=== PATIENT | male | born 1980 | race American Indian/Alaskan Native ===

== ENCOUNTER 2019-03-04 11:07 | Outpatient (CLI) | payer OTHER ==
--- NOTE | 2019-03-04 14:07 | XRay Report ---
BILATERAL HIPS 2 VIEWS WITH PELVIS HISTORY: Bilateral hip pain FINDINGS: No comparison. Bone mineralization is normal. Sclerotic changes are identified in both femo ral heads consistent with osteonecrosis. There is no evidence for femoral head collapse or fragmentat ion. The remaining bony structures are intact. No significant degenerative changes. Signer Name: Owen Tijerina Jr, MD Signed: 03/04/2019 2:02 PM Workstation Name: [id number]
== END 2019-03-04 11:08 | disposition home or self-care (01) ==
LOC: XRAY 11:07
PROVIDERS: ATTEND Orthopaedic Surgery
DX: M25.551 Pain in right hip (principal); M25.552 Pain in left hip; Z88.1 Allergy status to other antibiotic agents
CPT/HCPCS: 73521

== ENCOUNTER 2019-03-12 12:40 | Day surgery (SDC) | payer OTHER ==
[2019-03-12 14:13] VITALS: BP 123/82
[2019-03-12] MEDS ORDERED: LIDOCAINE (1%) 10 MG/1 ML VIAL 20 ML MDV INFILTRATI ONE (14:28)
[2019-03-12] MEDS ORDERED: BUPIVACAINE/PF (0.5%) 5 MG/1 ML 10 ML VIAL INFILTRATI ONE (14:30)
--- NOTE | 2019-03-12 15:02 | XRay Report ---
C-arm of the left hip INDICATION: Hip pain FINDINGS: Single view submitted shows needle projected over the medial aspect of the left hip joint f or pain control injection. Total fluoroscopic time was 0.2 minutes. Signer Name: Fred Rhodes MD Signed: 03/12/2019 2:58 PM Workstation Name: [id number]
[2019-03-12] MEDS ORDERED: BUPIVACAINE/PF (0.5%) 5 MG/1 ML 30 ML VIAL INFILTRATI ONE (15:17)
[2019-03-12] MEDS ORDERED: LIDOCAINE (1%) 10 MG/1 ML VIAL 20 ML MDV ONE (15:17)
--- NOTE | 2019-03-16 08:43 | Procedure Note ---
Date of procedure: 03/12/19 Pre-op diagnosis: avascular necrosis left femoral head Post-op diagnosis: same Procedure: Left femoral and obturator nerve block hip joint Procedure The patient was brought to the OR placed on the or table in the supine position next C-arm fluoroscopy was used to establish landmarks around the hip joint following this the left hip and groin area was prepped and draped in a sterile manner a timeout procedure was done to identify the patient and correct o perative site. Using the 21-gauge spinal needle a 0 fluoroscopy the anterior lateral portion of the acetabular rim was identified the spinal needle was placed up against the anterior border and 2% Marcaine was injected in the area of the femoral nerve articular branches. Following this a second spinal needle was then placed along the area corresponding to the Ischium on C-arm this area was anesthetized with lidocaine followed by insertion of the 21-gauge spinal needle and it was advanced just lateral to the teardrop on the inferior rim of the acetabulum ball was palpated as well The 2% Marcaine was injected into this location to anesthetize the obturator nerve the spinal needle was then removed pressure was applied over the puncture wound was followed by placement of 2 Band-Aids. The patient tolerated the procedure he was then taken back to the preop holding area where he was discharged to home Anesthesia: local Surgeon: VEGA CUTLER Estimated blood loss: minimal Pathology: none Condition: stable Disposition: observation
== END 2019-03-12 14:45 | disposition home or self-care (01) ==
LOC: OR 12:40
PROVIDERS: ATTEND Orthopaedic Surgery
DX: M87.052 Idiopathic aseptic necrosis of left femur (principal); G43.909 Migraine, unspecified, not intractable, without status migrainosus; E78.00 Pure hypercholesterolemia, unspecified; I10 Essential (primary) hypertension; G47.30 Sleep apnea, unspecified; K21.9 Gastro-esophageal reflux disease without esophagitis; E03.9 Hypothyroidism, unspecified; F32.9 Major depressive disorder, single episode, unspecified; F41.9 Anxiety disorder, unspecified; Z72.89 Other problems related to lifestyle; Z79.899 Other long term (current) drug therapy; Z88.2 Allergy status to sulfonamides; Z98.890 Other specified postprocedural states; Z86.2 Personal history of diseases of the blood and blood-forming organs and certain disorders involving the immune mechanism
CPT/HCPCS: 64447; 64450

== ENCOUNTER 2019-05-21 07:56 | Day surgery (SDC) | payer OTHER ==
--- NOTE | 2019-05-21 08:51 | Anesthesia Day of Surgery ---
Anesthesia Day of Surgery - Day of Surgery Patient Examined: Yes Patient H&P Reviewed: Yes Patient is NPO: Yes
--- NOTE | 2019-05-21 08:53 | Anesthesia Consultation ---
Anesthesia Consult and Med Hx Date of service: 05/21/19 - Airway Anesthetic Teeth Evaluation: Good ROM Head & Neck: Adequate Mental/Hyoid Distance: Adequate Mallampati Class: Class II Intubation Access Assessment: Probably Good - Pre-Operative Health Status ASA Pre-Surgery Classification: ASA3 Proposed Anesthetic Plan: General (MAC; GA if needed), MAC - Pulmonary Hx Smoking: No Hx Sleep Apnea: Yes (DX SLEEP APNEA WITH CPAP USE.) - Cardiovascular System Hx Hypertension: Yes (2007) - Central Nervous System Hx Back Pain: Yes ( QUIANA LEGS , WORSE IN LEFT- CHRONIC) Hx Psychiatric Problems: Yes (Anxiety/Depression/PTSD) - Gastrointestinal Hx Gastroesophageal Reflux Disease: Yes (Dietary. Hx colectomy and ileostomy; reversed) - Endocrine Hx Cirrhosis: Yes (DUE TO ALCOHOL ABUSE , DRY X 1 YR.) Hx Hypothyroidism: Yes (ON DAILY MEDS) - Hematic Hx Sickle Cell Disease: No (HIV+) - Other Systems Hx Alcohol Use: Yes (HX ABUSE- DRY X 1 YR) Hx Substance Use: Yes (RARE MARIJUANA USE) Hx Cancer: No
[2019-05-21] MEDS ORDERED: SODIUM CHLORIDE 0.9% 1000 ML 1,000 ML IV SCH (09:00)
[2019-05-21] MEDS ORDERED: fentaNYL 100 MCG/2 ML INJ IV PRN (09:00)
[2019-05-21] MEDS ORDERED: ONDANSETRON 4 MG/2 ML INJ IV PRN (09:00)
[2019-05-21] MEDS ORDERED: PROPOFOL 200 MG/20 ML VIAL IV ONE ×2 (11:05→12:15)
[2019-05-21] MEDS ORDERED: LIDOCAINE MPF (2%) 20 MG/1 ML VIAL 5 ML ONE (11:05)
[2019-05-21] MEDS ORDERED: fentaNYL 100 MCG/2 ML INJ ONE (11:05)
[2019-05-21] MEDS ORDERED: MIDAZOLAM 2 MG/2 ML INJ ONE (11:05)
[2019-05-21] MEDS ORDERED: BUPIVACAINE/PF (0.5%) 5 MG/1 ML 30 ML VIAL INFILTRATI ONE ×2 (11:10→12:15)
[2019-05-21] MEDS ORDERED: LIDOCAINE (1%) 10 MG/1 ML VIAL 20 ML MDV ONE (11:10)
[2019-05-21] MEDS ORDERED: KETAMINE/STERILE WATER 50 MG/ML SYRINGE ONE (11:40)
[2019-05-21] MEDS ORDERED: PHENYLEPHRINE/NS 1,000 MCG/10 ML SYRINGE (OR USE) IV ONE (11:58)
[2019-05-21] MEDS ORDERED: methylPREDNISolone ACETATE 40 MG/1 ML INJ IM ONE (12:02)
[2019-05-21] MEDS ORDERED: LIDOCAINE (1%) 10 MG/1 ML VIAL 20 ML MDV INFILTRATI ONE (12:16)
[2019-05-21] MEDS ORDERED: ONDANSETRON 4 MG/2 ML INJ ONE (12:22)
--- NOTE | 2019-05-21 12:42 | Procedure Note ---
Date of procedure: 05/21/19 Pre-op diagnosis: left hip pain Post-op diagnosis: same Procedure: Radiofrequency ablation right femoral and obturator nerves Procedure The patient was brought to the OR placed in the OR table in supine position following induction with MAC anesthesia the patient's leftt hip was then prepped and draped in the usual sterile manner. A timeout procedure was done to identify the patient and the correct operative site. Using C-arm fluoroscopy the area overlying the acetabular rim superiorly was localized, care was taken to avoid the neurovascular structures, next the thermoprobe was placed into the correct position along the acetabular superior rim, next a second probe was then inserted just medial to the tear drop sign near the obturator canal, again care was taken to avoid the neurovascular structures once These probes were in the corret position the nerves was checked to make sure that we were not near the motor nerves following this the radiofrequency was then began and continued for 2-1/2 minutes in each location After ablating the nerves I injected Marcaine and Kenalog mixture into the portals followed by removal. Band-Aids were applied to the puncture sites the patient was then awaken and was taken to postanesthesia recovery Anesthesia: MAC Surgeon: VEGA CUTLER Estimated blood loss: minimal Pathology: none Condition: stable Disposition: PACU
[2019-05-21] MEDS ORDERED: methylPREDNISolone ACETATE 40 MG/1 ML INJ ONE (12:53)
[2019-05-21 13:24] VITALS: BP 137/93
--- NOTE | 2019-05-21 14:32 | XRay Report ---
INTRAOPERATIVE FLUOROSCOPY: LEFT HIP INDICATION: LT HIP PAIN. TECHNIQUE: Intraoperative spot images were obtained during the procedure. FINDINGS: Limited spot fluoroscopic imaging of the left hip was performed for guidance of a radiofrequency proc edure. Please see the operative report for further details. Fluoroscopy Time: 38 seconds. Fluoroscopy Images: 3. Signer Name: Jean Paul Vazquez MD Signed: 05/21/2019 2:27 PM Workstation Name: [id number]
--- NOTE | 2019-05-21 17:17 | Post Anesthesia Evaluation ---
- Post Anesthesia Evaluation Patient Participated: Yes Airway Patent: Yes Stable Respiratory Function: Yes Nausea/Vomiting: No Temp > 96.8F: Yes Pain Manageable: Yes Adequeate Hydration: Yes Anesthesia Complications: No Block Receding Appropriately: Not Applicable Patient on Ventilator: No
== END 2019-05-21 13:55 | disposition home or self-care (01) ==
LOC: OR 07:56
PROVIDERS: ATTEND Orthopaedic Surgery
DX: M25.562 Pain in left knee (principal); G43.909 Migraine, unspecified, not intractable, without status migrainosus; E78.00 Pure hypercholesterolemia, unspecified; I10 Essential (primary) hypertension; G47.30 Sleep apnea, unspecified; K21.9 Gastro-esophageal reflux disease without esophagitis; E03.9 Hypothyroidism, unspecified; F32.9 Major depressive disorder, single episode, unspecified; F41.9 Anxiety disorder, unspecified; Z72.89 Other problems related to lifestyle; Z79.899 Other long term (current) drug therapy; Z88.2 Allergy status to sulfonamides; Z98.890 Other specified postprocedural states; Z86.2 Personal history of diseases of the blood and blood-forming organs and certain disorders involving the immune mechanism
CPT/HCPCS: 36415; 64640; 73501; 84132; A4649; J1030; J2250; J2370; J2405; J2704; J3010; J7030

== ENCOUNTER 2019-06-11 06:59 | Day surgery (SDC) | payer OTHER ==
[~2019-06-11 06:59] MED LIST: BUPIVACAINE/PF (0.5%) 5 MG/1 ML 30 ML VIAL INFILTRATI ONE; LIDOCAINE (1%) 10 MG/1 ML VIAL 20 ML MDV INFILTRATI ONE
[2019-06-11 07:28] VITALS: BP 130/86
[2019-06-11] MEDS ORDERED: BUPIVACAINE/PF (0.5%) 5 MG/1 ML 30 ML VIAL INFILTRATI ONE ×3 (08:04→08:30)
[2019-06-11] MEDS ORDERED: LIDOCAINE (1%) 10 MG/1 ML VIAL 20 ML MDV ONE (08:04)
[2019-06-11] MEDS ORDERED: LIDOCAINE (1%) 10 MG/1 ML VIAL 20 ML MDV INFILTRATI ONE ×2 (08:30)
--- NOTE | 2019-06-11 09:00 | Procedure Note ---
Date of procedure: 06/11/19 Pre-op diagnosis: Avascular necrosis right femoral head Post-op diagnosis: same Procedure: Right femoral and obturator nerve blocks hip joint Procedure The patient was brought to the OR placed on the or table in the supine position next C-arm fluoroscopy was used to establish landmarks around the hip joint following this the right hip and groin area was prepped and draped in a sterile manner a timeout procedure was done to identify the patient and correct operative site. Using the 21-gauge spinal needle a 0 fluoroscopy the anterior lateral portion of the acetabular rim was identified the spinal needle was placed up against the anterior border and 2% Marcaine was injected in the area of the femoral nerve articular branches. Following this a second spinal needle was then placed along the area corresponding to the Ischium on C-arm this area was anesthetized with lidocaine followed by insertion of the 21-gauge spinal needle and it was advanced just lateral to the teardrop on the inferior rim of the acetabulum ball was palpated as well The 2% Marcaine was injected into this location to anesthetize the obturator nerve the spinal needle was then removed pressure was applied over the puncture wound was followed by placement of 2 Band-Aids. The patient tolerated the procedure he was then taken back to the preop holding area where he was discharged to home Anesthesia: local Surgeon: VGEA CUTLER Estimated blood loss: minimal Pathology: none Condition: stable Disposition: observation
--- NOTE | 2019-06-11 12:49 | XRay Report ---
RIGHT HIP ONE VIEW INDICATION: RIGHT HIP AVASCULAR NECROSIS.. COMPARISON: None. IMPRESSION: 2 AP fluoroscopic images of the right hip region are presented demonstrating needle plac ement along the inferomedial margin of the acetabulum for right obturator nerve block. No acute osse ous abnormality is demonstrated. Please correlate with the procedural report as needed. Signer Name: Owen Tijerina Jr, MD Signed: 06/11/2019 12:44 PM Workstation Name: [id number]
== END 2019-06-11 08:52 | disposition home or self-care (01) ==
LOC: OR 06:59
PROVIDERS: ATTEND Orthopaedic Surgery
DX: M25.551 Pain in right hip (principal); M87.851 Other osteonecrosis, right femur; G43.909 Migraine, unspecified, not intractable, without status migrainosus; E78.00 Pure hypercholesterolemia, unspecified; I10 Essential (primary) hypertension; G47.30 Sleep apnea, unspecified; K21.9 Gastro-esophageal reflux disease without esophagitis; M19.90 Unspecified osteoarthritis, unspecified site; E03.9 Hypothyroidism, unspecified; F32.9 Major depressive disorder, single episode, unspecified; F41.9 Anxiety disorder, unspecified; Z72.89 Other problems related to lifestyle; Z88.2 Allergy status to sulfonamides; Z79.899 Other long term (current) drug therapy; Z98.890 Other specified postprocedural states; Z86.2 Personal history of diseases of the blood and blood-forming organs and certain disorders involving the immune mechanism
CPT/HCPCS: 77002

== ENCOUNTER 2019-08-13 05:54 | Day surgery (SDC) | payer OTHER ==
[2019-08-13] MEDS ORDERED: BACTERIOSTATIC SODIUM CHLORIDE 0.9% 30 ML VIAL INFILTRATI ONE (06:34)
[2019-08-13] MEDS ORDERED: methylPREDNISolone ACETATE 40 MG/1 ML INJ ONE (07:28)
[2019-08-13] MEDS ORDERED: LIDOCAINE (1%) 10 MG/1 ML VIAL 20 ML MDV ONE (07:28)
[2019-08-13] MEDS ORDERED: BUPIVACAINE/PF (0.5%) 5 MG/1 ML 30 ML VIAL INFILTRATI ONE ×2 (07:29→09:02)
--- NOTE | 2019-08-13 07:34 | Anesthesia Day of Surgery ---
Anesthesia Day of Surgery - Day of Surgery Patient Examined: Yes Patient H&P Reviewed: Yes Patient is NPO: Yes
--- NOTE | 2019-08-13 07:34 | Anesthesia Consultation ---
Anesthesia Consult and Med Hx Date of service: 08/13/19 - Airway Anesthetic Teeth Evaluation: Good ROM Head & Neck: Adequate Mental/Hyoid Distance: Adequate Mallampati Class: Class III Intubation Access Assessment: Possibly Difficult - Pre-Operative Health Status ASA Pre-Surgery Classification: ASA3 Proposed Anesthetic Plan: MAC - Pulmonary Hx Smoking: No Hx Sleep Apnea: Yes (DX SLEEP APNEA WITH CPAP USE.) - Cardiovascular System Hx Hypertension: Yes (2007) Hx Coronary Artery Disease: No (high cholesterol (diet controlled)) - Central Nervous System Hx Back Pain: Yes (WITH QUIANA LEG PAIN - CHRONIC , NECK PAIN) Hx Psychiatric Problems: Yes (Anxiety/Depression/PTSD) - Gastrointestinal Hx Gastroesophageal Reflux Disease: Yes (Dietary. Hx colectomy and ileostomy; reversed) - Endocrine Hx Cirrhosis: Yes (DUE TO ALCOHOL ABUSE , DRY X 1 YR.) Hx Hypothyroidism: Yes (ON DAILY MEDS) - Other Systems Hx Alcohol Use: Yes (HX ABUSE- DRY X 1 YR) Hx Substance Use: Yes (RARE MARIJUANA USE) Hx Cancer: No - Additional Comments Anesthesia Medical History Comments: HIV, left hip radio-frequency ablation is successfully done 6 month ago
[2019-08-13] MEDS ORDERED: LIDOCAINE MPF (2%) 20 MG/1 ML VIAL 5 ML ONE (07:37)
[2019-08-13] MEDS ORDERED: propofoL 200 MG/20 ML VIAL IV ONE ×3 (07:38→09:10)
[2019-08-13] MEDS ORDERED: fentaNYL 100 MCG/2 ML INJ ONE (07:38)
[2019-08-13] MEDS ORDERED: FAMOTIDINE 20 MG/2 ML INJ IV NR (08:00)
[2019-08-13] MEDS ORDERED: MIDAZOLAM 2 MG/2 ML INJ IV NR (08:00)
[2019-08-13] MEDS ORDERED: LACTATED RINGERS 1,000 ML IV SCH (08:00)
[2019-08-13] MEDS ORDERED: KETAMINE/STERILE WATER 50 MG/ML SYRINGE ONE (08:28)
[2019-08-13] MEDS ORDERED: LIDOCAINE (1%) 10 MG/1 ML VIAL 20 ML MDV INFILTRATI ONE (09:02)
[2019-08-13] MEDS ORDERED: methylPREDNISolone ACETATE 40 MG/1 ML INJ INTRA-ARTI ONE (09:02)
[2019-08-13] MEDS ORDERED: KETOROLAC 30 MG/1 ML INJ ONE (09:08)
[2019-08-13] MEDS ORDERED: ONDANSETRON 4 MG/2 ML INJ ONE (09:08)
--- NOTE | 2019-08-13 09:49 | Procedure Note ---
Date of procedure: 08/13/19 Pre-op diagnosis: Right hip pain avascular necrosis right femoral head Post-op diagnosis: same Procedure: Radiofrequency ablation right femoral and obturator nerves Procedure The patient was brought to the OR placed in the OR table in supine position following induction with MAC anesthesia the patient's right hip was then prepped and draped in the usual sterile manner. A timeout procedure was done to identify the patient and the correct operative site. Using C-arm fluoroscopy the area overlying the acetabular rim superiorly was localized, care was taken to avoid the neurovascular structures, next the thermoprobe was placed into the correct position along the acetabular superior rim, next a second probe was then inserted just medial to the tear drop sign near the obturator canal, again care was taken to avoid the neurovascular structures once These probes were in the correct position those nerves were checked to make sure that we were not near the motor nerves following this the radiofrequency ablation was then began and continued for 2-1/2 minutes in each location. After ablating the nerves I injected Marcaine and Kenalog mixture into the portals followed by removal. Band-Aids were applied to the puncture sites the patient was then awaken and was taken to postanesthesia recovery Anesthesia: MAC Surgeon: VEGA CUTLER Estimated blood loss: minimal Pathology: none Condition: stable Disposition: PACU
[2019-08-13 11:07] VITALS: BP 132/84
--- NOTE | 2019-08-13 15:42 | XRay Report ---
INTRAOPERATIVE FLUOROSCOPY: RIGHT HIP INDICATION: Right hip pain. Guidance for radiofrequency procedure. TECHNIQUE: Intraoperative spot images were obtained during the procedure. FINDINGS: Limited spot fluoroscopy demonstrates access of the superior and medial aspects of the right hip. Ple ase see the procedure report for further details. Fluoroscopy Time: 34 seconds. Fluoroscopy Images: 3. Signer Name: Jean Paul Vazquez MD Signed: 08/13/2019 3:38 PM Workstation Name: [id number]
== END 2019-08-13 05:55 | disposition home or self-care (01) ==
LOC: OR 05:54
PROVIDERS: ATTEND Orthopaedic Surgery
DX: M25.551 Pain in right hip (principal); M87.051 Idiopathic aseptic necrosis of right femur; G43.909 Migraine, unspecified, not intractable, without status migrainosus; E78.00 Pure hypercholesterolemia, unspecified; I10 Essential (primary) hypertension; G47.30 Sleep apnea, unspecified; K21.9 Gastro-esophageal reflux disease without esophagitis; M19.90 Unspecified osteoarthritis, unspecified site; E03.9 Hypothyroidism, unspecified; F32.9 Major depressive disorder, single episode, unspecified; F41.9 Anxiety disorder, unspecified; Z88.2 Allergy status to sulfonamides; Z79.899 Other long term (current) drug therapy; Z72.89 Other problems related to lifestyle; Z98.890 Other specified postprocedural states
CPT/HCPCS: 36415; 64640; 73501; 84132; A4649; J1030; J1885; J2250; J2405; J2704; J3010; J7120